=== PATIENT | male | born 1955 | race Caucasian/White ===

== ENCOUNTER 2019-03-28 19:42 | Inpatient (IN) | payer BC, OTHER ==
[~2019-03-28] VITALS: Ht 182.9 cm; Wt 95.1 kg
--- NOTE | 2019-03-28 19:43 | NUR ---
BIB EMS from [facility] for acute CHF, hypertensive crisis, NSTEMI, and acute hypoxemic respiratory failure. Pt intubated prior to arrival. Pt on propofol drip upon arrival at 40mcg/kg/min, per Dr. Liv virgen to continue sedation.
--- NOTE | 2019-03-28 19:45 | NUR ---
FAMILY NEHA CALVILLO [phone]. SHE IS ON HER WAY HERE, SHE REQUESTS A DIRECTOR OF PROMOTIONS FOR THE PATIENT
--- NOTE | 2019-03-28 19:56 | NUR ---
Propofol paused for neuro exam.
--- NOTE | 2019-03-28 19:58 | NUR ---
Propofol restarted for XR, lab draw, and RT.
[2019-03-28] MEDS ORDERED: SODIUM CHLORIDE FLUSH 10ML SYR IVF ONE (20:00)
[2019-03-28 20:52] LABS: INTERNATIONAL NORMALIZED RATIO 11.7 (0.93-1.1); PROTHROMBIN TIME 111.8 Seconds (9.6-11.5)
[2019-03-28 20:55] LABS: BASOPHILS # (AUTO) 0.01 x10^3/uL (0-0.1); BASOPHILS % (AUTO) 0 % (0-1); EOSINOPHILS % (AUTO) 0 % (1-7); LYMPHOCYTES # (AUTO) 1.01 x10^3/uL (1-3.4); LYMPHOCYTES % (AUTO) 11 % (22-44); MD NO; MEAN CORPUSCULAR HEMOGLOBIN 24.1 pg (27.5-34.5); MEAN CORPUSCULAR HGB CONC 31.6 g/dL (33.2-36.2); MEAN CORPUSCULAR VOLUME 76.2 fL (81-97); MEAN PLATELET VOLUME 6.7 fL (7.4-10.4); MONOCYTES # (AUTO) 0.59 x10^3/uL (0.2-0.8); MONOCYTES % (AUTO) 6 % (2-9); NEUTROPHILS # (AUTO) 8.05 x10^3/uL (1.8-6.8); NEUTROPHILS % (AUTO) 83 % (42-75); PLATELET COUNT 464 x10^3/uL (130-400); RED BLOOD COUNT 4.32 x10^6/uL (4.38-5.82); RED CELL DISTRIBUTION WIDTH 18.5 % (9.4-14.8)
[2019-03-28 20:59] LABS: ALANINE AMINOTRANSFERASE 327 U/L (12-78); ALBUMIN 2.7 g/dL (3.4-5.0); ANION GAP 10 mmol/L (5-15); CHLORIDE 104 mmol/L (98-107); CREATININE 1.13 mg/dL (0.7-1.3)
[2019-03-28 21:04] LABS: ALKALINE PHOSPHATASE 53 U/L (45-117); BILIRUBIN,TOTAL 0.7 mg/dL (0.2-1.0); CREATINE KINASE, TOTAL 499 U/L (39-308); TOTAL PROTEIN 6.9 g/dL (6.4-8.2)
[2019-03-28 21:06] LABS: TROPONIN I 0.125 ng/mL (0.000-0.045)
[2019-03-28] MEDS: PROPOFOL 100 ML IV SCH (21:12)
[2019-03-28] MEDS ORDERED: NOREPINEPHRINE 4 MG in SODIUM CHLORIDE 0.9% 246 ML IV PRN (21:26)
[2019-03-28] MEDS ORDERED: LACTULOSE 20 GM/30 ML UDC NG PRN (21:30)
[2019-03-28] MEDS ORDERED: BISACODYL 10 MG SUPP PR PRN (21:30)
[2019-03-28] MEDS ORDERED: DEXTROSE 50%, 50ML SYRINGE IVPush PRN (21:30)
[2019-03-28] MEDS ORDERED: ALBUTEROL/IPRATROPIUM 2.5MG/0.5MG, 3 ML INLINE SCH (21:30)
[2019-03-28] MEDS ORDERED: GLUCAGON 1 MG IM PRN (21:30)
[2019-03-28] MEDS ORDERED: PHARMACY MAY ADJ FOR RENAL FX MC SCH (21:30)
[2019-03-28] MEDS ORDERED: SENNA 176 MG/5 ML ORAL SOL NG PRN (21:30)
[2019-03-28] MEDS ORDERED: DEXTROSE 4 GM TAB.CHEW PO PRN (21:30)
[2019-03-28] MEDS ORDERED: FENTANYL PF 100 MCG/2ML IVPush PRN (21:30)
[2019-03-28] MEDS ORDERED: SENNA/DOCUSATE TABLET NG PRN (21:30)
--- NOTE | 2019-03-28 21:37 | NUR ---
BROTHER MASSIEL AGRAWAL [phone]
--- NOTE | 2019-03-28 21:39 | NUR ---
Dr. Hernandez at bedside to evaluate pt for admission.
--- NOTE | 2019-03-28 21:56 | NUR ---
Telephone SBAR report given to Melvin SHELBY. Pt readied for transport.
[2019-03-28] MEDS ORDERED: ENALAPRILAT 1.25 MG/ML, 2ML IVPush PRN (22:00)
[2019-03-28] MEDS ORDERED: LACTATED RINGERS 1,000 ML IV SCH (22:00)
[2019-03-28] MEDS ORDERED: PHARMACY MAY ADJ FOR RENAL FX MC PRN (22:00)
[2019-03-28] MEDS ORDERED: PHYTONADIONE 10 MG in SODIUM CHLORIDE 0.9% 50 ML IV ONE (22:00)
[2019-03-28] MEDS: SODIUM CHLORIDE 0.9% 1,000 ML IV SCH (22:59)
[2019-03-28] MEDS: FAMOTIDINE 20 MG/2 ML IV SCH (23:00)
[2019-03-28] MEDS: CEFTRIAXONE PMX 1GM/50ML 50 ML IV SCH (23:25)
[2019-03-28 23:39] LABS: TROPONIN I 0.123 ng/mL (0.000-0.045)
[2019-03-28 23:53] LABS: BILIRUBIN, DIRECT 0.4 mg/dL (0.1-0.2)
[2019-03-28 23:54] LABS: BILIRUBIN,INDIRECT 0.3 mg/dL (0.0-2.0); BILIRUBIN,TOTAL 0.7 mg/dL (0.2-1.0)
[2019-03-29] MEDS ORDERED: GEMF600T8 PO (00:14)
[2019-03-29] MEDS ORDERED: MELO15TA24 PO (00:14)
[2019-03-29] MEDS ORDERED: HYDR-3245 PO (00:14)
[2019-03-29] MEDS ORDERED: CITA40TA5 PO (00:14)
[2019-03-29] MEDS ORDERED: ALBU18HF INH (00:14)
[2019-03-29] MEDS ORDERED: MODAFINIL PO (00:14)
[2019-03-29] MEDS ORDERED: AMLO1CAP12 PO (00:14)
[2019-03-29] MEDS ORDERED: OMEP-110 PO (00:14)
[2019-03-29] MEDS ORDERED: LOVA40TA2 PO (00:14)
[2019-03-29] MEDS ORDERED: epi-pen IM (00:14)
[2019-03-29] MEDS ORDERED: TRAM200T17 PO (00:14)
[2019-03-29] MEDS: DOXYCYCLINE 100 MG in DEXTROSE 5% 250 ML IV SCH ×2 (00:22→12:04)
[2019-03-29] MEDS: methylPREDNISolone SOD SUCC 40 MG/ML IV SCH ×4 (00:22→18:33)
[2019-03-29 01:02] LABS: CULTURE INDICATED? YES; MICROSCOPIC INDICATED
[2019-03-29] MEDS: PROPOFOL 100 ML IV SCH (01:30)
[2019-03-29] MEDS: ALBUTEROL/IPRATROPIUM 2.5MG/0.5MG, 3 ML INLINE SCH ×7 (02:58→22:18)
[2019-03-29 03:36] LABS: BASOPHILS # (AUTO) 0.01 x10^3/uL (0-0.1); BASOPHILS % (AUTO) 0 % (0-1); EOSINOPHILS # (AUTO) 0.01 x10^3/uL (0-0.4); EOSINOPHILS % (AUTO) 0 % (1-7); LYMPHOCYTES # (AUTO) 0.33 x10^3/uL (1-3.4); LYMPHOCYTES % (AUTO) 4 % (22-44); MD NO; MEAN CORPUSCULAR HEMOGLOBIN 24.2 pg (27.5-34.5); MEAN CORPUSCULAR VOLUME 75.7 fL (81-97); MEAN PLATELET VOLUME 6.9 fL (7.4-10.4); MONOCYTES # (AUTO) 0.29 x10^3/uL (0.2-0.8); MONOCYTES % (AUTO) 3 % (2-9); NEUTROPHILS # (AUTO) 8.28 x10^3/uL (1.8-6.8); NEUTROPHILS % (AUTO) 93 % (42-75); PLATELET COUNT 406 x10^3/uL (130-400); RED BLOOD COUNT 4.15 x10^6/uL (4.38-5.82); RED CELL DISTRIBUTION WIDTH 18.5 % (9.4-14.8)
[2019-03-29 03:46] LABS: INTERNATIONAL NORMALIZED RATIO 3.55 (0.93-1.1)
[2019-03-29 03:49] LABS: ALANINE AMINOTRANSFERASE 372 U/L (12-78); ALBUMIN 2.6 g/dL (3.4-5.0); ANION GAP 9 mmol/L (5-15); CALCIUM 8.1 mg/dL (8.5-10.1); CHLORIDE 105 mmol/L (98-107)
[2019-03-29 03:51] LABS: AMPHETAMINE SCREEN, URINE Negative (Negative); BARBITURATE SCREEN, URINE Negative (Negative); BENZODIAZEPINE SCREEN, URINE Negative (Negative); CANNABINOID SCREEN, URINE Negative (Negative); COCAINE SCREEN, URINE Negative (Negative); METHADONE SCREEN, URINE Negative (Negative); OPIATE SCREEN, URINE Positive (Negative)
[2019-03-29 03:52] LABS: ALKALINE PHOSPHATASE 51 U/L (45-117); BILIRUBIN,TOTAL 0.5 mg/dL (0.2-1.0); CHOL/HDL RATIO 3.6; CHOLESTEROL, TOTAL 102 mg/dL (140-239); CREATININE 0.98 mg/dL (0.7-1.3); HDL CHOL % 27 % (26-37); HDL CHOLESTEROL (DIRECT) 28 mg/dL (40-60); LDL CHOLESTEROL,CALCULATED 62 mg/dL (54-169); LDL/HDL RATIO 2.2 (0.5-3.0); TOTAL PROTEIN 6.6 g/dL (6.4-8.2); TRIGLYCERIDES 62 mg/dL (50-200); TROPONIN I 0.131 ng/mL (0.000-0.045); VLDL CHOLESTEROL 12 mg/dL (0-25)
[2019-03-29 04:00] VITALS: BP 106/78
[2019-03-29 04:02] LABS: PROTHROMBIN TIME 35.5 Seconds (9.6-11.5)
[2019-03-29] MEDS ORDERED: INSULIN LISPRO 100 UNITS/ML, PEN SQ-INSULIN SCH (07:00)
[2019-03-29] MEDS ORDERED: ASPIRIN 300 MG SUPP PR SCH (09:00)
[2019-03-29] MEDS ORDERED: BUDESONIDE 0.5 MG/2 ML INHA INH SCH (09:00)
[2019-03-29] MEDS: FAMOTIDINE 20 MG/2 ML IV SCH ×2 (09:06→21:00)
[2019-03-29] MEDS: SODIUM CHLORIDE FLUSH 10ML SYR IVF SCH ×2 (09:06→21:00)
[2019-03-29] MEDS: INSULIN LISPRO 100 UNITS/ML, PEN SQ-INSULIN SCH ×2 (14:14→21:01)
[2019-03-29] MEDS: PROPOFOL 100 ML IV PRN ×2 (15:06→22:25)
[2019-03-29] MEDS: SODIUM CHLORIDE 0.9% 1,000 ML IV SCH (18:33)
[2019-03-29] MEDS: LIDOCAINE-MPF 1%, 2ML ENDO PRN (20:35)
[2019-03-29] MEDS: CEFTRIAXONE PMX 1GM/50ML 50 ML IV SCH (23:13)
[2019-03-30] MEDS: DOXYCYCLINE 100 MG in DEXTROSE 5% 250 ML IV SCH ×3 (00:26→23:49)
[2019-03-30] MEDS: methylPREDNISolone SOD SUCC 40 MG/ML IV SCH ×3 (00:26→10:59)
[2019-03-30] MEDS: PROPOFOL 100 ML IV PRN ×6 (00:57→23:54)
[2019-03-30] MEDS: INSULIN LISPRO 100 UNITS/ML, PEN SQ-INSULIN SCH ×4 (02:22→20:00)
[2019-03-30] MEDS: ALBUTEROL/IPRATROPIUM 2.5MG/0.5MG, 3 ML INLINE SCH ×6 (02:35→22:13)
[2019-03-30 04:05] VITALS: BP 108/74
[2019-03-30 04:57] LABS: MEAN CORPUSCULAR HEMOGLOBIN 24.2 pg (27.5-34.5); MEAN CORPUSCULAR HGB CONC 31.7 g/dL (33.2-36.2); MEAN CORPUSCULAR VOLUME 76.2 fL (81-97); MEAN PLATELET VOLUME 7.2 fL (7.4-10.4); PLATELET COUNT 440 x10^3/uL (130-400); RED CELL DISTRIBUTION WIDTH 18.7 % (9.4-14.8)
[2019-03-30 05:00] LABS: INTERNATIONAL NORMALIZED RATIO 1.39 (0.93-1.1); PROTHROMBIN TIME 14.4 Seconds (9.6-11.5)
[2019-03-30 05:03] LABS: ALBUMIN 2.3 g/dL (3.4-5.0); ANION GAP 8 mmol/L (5-15); CHLORIDE 109 mmol/L (98-107)
[2019-03-30 05:07] LABS: ALANINE AMINOTRANSFERASE 300 U/L (12-78); ALKALINE PHOSPHATASE 47 U/L (45-117); BILIRUBIN,TOTAL 0.4 mg/dL (0.2-1.0); CREATININE 0.81 mg/dL (0.7-1.3); TOTAL PROTEIN 6.3 g/dL (6.4-8.2)
[2019-03-30 05:49] LABS: ANISOCYTOSIS 1+; BASOPHILS % (AUTO) 0 % (0-1); EOSINOPHILS % (AUTO) 0 % (1-7); HYPOCHROMIA 1+; LYMPHOCYTES # (AUTO) 0.31 x10^3/uL (1-3.4); LYMPHOCYTES % (AUTO) 3 % (22-44); MD MORPH REVIEW ONLY; MICROCYTOSIS 1+; MONOCYTES # (AUTO) 0.18 x10^3/uL (0.2-0.8); MONOCYTES % (AUTO) 2 % (2-9); NEUTROPHILS # (AUTO) 11.15 x10^3/uL (1.8-6.8); NEUTROPHILS % (AUTO) 96 % (42-75)
[2019-03-30 05:50] LABS: OVALOCYTES 1+; POLYCHROMASIA 1+
[2019-03-30 05:51] LABS: <PLATELET ESTIMATE> INCREASED; <PLT MORPHOLOGY> NORMAL PLT MORPH
[2019-03-30] MEDS: SODIUM CHLORIDE FLUSH 10ML SYR IVF SCH ×2 (08:50→20:37)
[2019-03-30] MEDS: FAMOTIDINE 20 MG/2 ML IV SCH ×2 (08:55→20:37)
--- NOTE | 2019-03-30 09:59 | NUR ---
TF GOAL: w/ propofol: PROMOTE @ 75ML/HR off propofol: PROMOTE @ 85ML/HR
[2019-03-30] MEDS ORDERED: FUROSEMIDE 40 MG/4 ML IV ONE (12:00)
[2019-03-30] MEDS: SODIUM CHLORIDE 0.9% 1,000 ML IV SCH (12:17)
[2019-03-30] MEDS: LIDOCAINE-MPF 1%, 2ML ENDO PRN (19:40)
[2019-03-30] MEDS ORDERED: methylPREDNISolone SOD SUCC 40 MG/ML ONE (19:59)
[2019-03-30] MEDS: CEFTRIAXONE PMX 1GM/50ML 50 ML IV SCH (22:44)
[2019-03-30] MEDS ORDERED: methylPREDNISolone SOD SUCC 40 MG/ML IV SCH (23:30)
[2019-03-31] MEDS: INSULIN LISPRO 100 UNITS/ML, PEN SQ-INSULIN SCH ×4 (01:22→20:59)
[2019-03-31] MEDS: ALBUTEROL/IPRATROPIUM 2.5MG/0.5MG, 3 ML INLINE SCH ×2 (02:14→07:00)
[2019-03-31] MEDS: PROPOFOL 100 ML IV PRN (02:50)
[2019-03-31 04:40] VITALS: BP 115/72
[2019-03-31 04:59] LABS: ANION GAP 6 mmol/L (5-15); CALCIUM 8.2 mg/dL (8.5-10.1); CHLORIDE 110 mmol/L (98-107)
[2019-03-31 05:00] LABS: TRIGLYCERIDES 108 mg/dL (50-200)
[2019-03-31 05:05] LABS: MEAN CORPUSCULAR HEMOGLOBIN 24.2 pg (27.5-34.5); MEAN CORPUSCULAR HGB CONC 31.9 g/dL (33.2-36.2); MEAN CORPUSCULAR VOLUME 75.7 fL (81-97); MEAN PLATELET VOLUME 7.2 fL (7.4-10.4); PLATELET COUNT 452 x10^3/uL (130-400); RED BLOOD COUNT 4.38 x10^6/uL (4.38-5.82); RED CELL DISTRIBUTION WIDTH 18.6 % (9.4-14.8)
[2019-03-31 05:49] LABS: BASOPHILS % (AUTO) 0 % (0-1); EOSINOPHILS % (AUTO) 0 % (1-7); LYMPHOCYTES # (AUTO) 0.19 x10^3/uL (1-3.4); LYMPHOCYTES % (AUTO) 2 % (22-44); MD MORPH REVIEW ONLY; MONOCYTES # (AUTO) 0.46 x10^3/uL (0.2-0.8); MONOCYTES % (AUTO) 4 % (2-9); NEUTROPHILS % (AUTO) 95 % (42-75)
[2019-03-31 05:51] LABS: ANISOCYTOSIS 1+; MICROCYTOSIS 1+; OVALOCYTES 1+
[2019-03-31 05:52] LABS: <PLATELET ESTIMATE> INCREASED; <PLT MORPHOLOGY> NORMAL PLT MORPH; POLYCHROMASIA 1+; TARGET CELLS 1+
[2019-03-31] MEDS: FAMOTIDINE 20 MG/2 ML IV SCH ×2 (08:53→20:59)
[2019-03-31] MEDS: ENOXAPARIN 100 MG/ML SQ SCH ×2 (08:53→20:59)
[2019-03-31] MEDS: SODIUM CHLORIDE FLUSH 10ML SYR IVF SCH ×2 (08:54→20:59)
[2019-03-31] MEDS: SODIUM CHLORIDE 0.9% 1,000 ML IV SCH (08:56)
[2019-03-31] MEDS: DOXYCYCLINE 100 MG in DEXTROSE 5% 250 ML IV SCH ×2 (12:02→23:41)
[2019-03-31] MEDS ORDERED: MELATONIN 3 MG TABLET PO PRN (14:30)
--- NOTE | 2019-03-31 14:47 | NUR ---
EXTERNAL RELATIONS DIRECTOR RECOMMEND: PUREE/ THINS -No straws -UP at 90 degrees -Small bites/ sip -Meds floated Addendum: 03/31/19 at [address] Amended: Links added.
[2019-03-31] MEDS: CEFTRIAXONE PMX 1GM/50ML 50 ML IV SCH (23:13)
[2019-04-01] MEDS: INSULIN LISPRO 100 UNITS/ML, PEN SQ-INSULIN SCH ×4 (02:00→20:00)
[2019-04-01 04:42] LABS: BASOPHILS # (AUTO) 0.01 x10^3/uL (0-0.1); BASOPHILS % (AUTO) 0 % (0-1); EOSINOPHILS # (AUTO) 0.01 x10^3/uL (0-0.4); EOSINOPHILS % (AUTO) 0 % (1-7); LYMPHOCYTES # (AUTO) 1.46 x10^3/uL (1-3.4); LYMPHOCYTES % (AUTO) 17 % (22-44); MD NO; MEAN CORPUSCULAR HEMOGLOBIN 24.2 pg (27.5-34.5); MEAN CORPUSCULAR HGB CONC 31.7 g/dL (33.2-36.2); MEAN CORPUSCULAR VOLUME 76.3 fL (81-97); MONOCYTES # (AUTO) 0.55 x10^3/uL (0.2-0.8); MONOCYTES % (AUTO) 6 % (2-9); NEUTROPHILS # (AUTO) 6.56 x10^3/uL (1.8-6.8); NEUTROPHILS % (AUTO) 76 % (42-75); PLATELET COUNT 391 x10^3/uL (130-400); RED BLOOD COUNT 4.36 x10^6/uL (4.38-5.82); RED CELL DISTRIBUTION WIDTH 19.1 % (9.4-14.8)
[2019-04-01 04:57] LABS: ANION GAP 4 mmol/L (5-15); CALCIUM 8.1 mg/dL (8.5-10.1); CHLORIDE 112 mmol/L (98-107)
[2019-04-01 04:58] LABS: CREATININE 0.72 mg/dL (0.7-1.3)
[2019-04-01 07:44] VITALS: BP 121/88
[2019-04-01 10:19] LABS: ALBUMIN 2.4 g/dL (3.4-5.0); BILIRUBIN, DIRECT 0.2 mg/dL (0.1-0.2)
[2019-04-01 10:21] LABS: BILIRUBIN,INDIRECT 0.2 mg/dL (0.0-2.0); BILIRUBIN,TOTAL 0.4 mg/dL (0.2-1.0)
[2019-04-01] MEDS: SODIUM CHLORIDE FLUSH 10ML SYR IVF SCH ×2 (10:26→21:10)
[2019-04-01] MEDS: ENOXAPARIN 100 MG/ML SQ SCH ×2 (10:26→21:10)
[2019-04-01] MEDS: ASPIRIN 325 MG TABLET EC PO SCH (10:27)
[2019-04-01 10:53] LABS: INTERNATIONAL NORMALIZED RATIO 1.32 (0.93-1.1); PROTHROMBIN TIME 13.7 Seconds (9.6-11.5)
[2019-04-01] MEDS ORDERED: WARFARIN MODERAT DOSE PROTOCOL XX SCH (12:00)
[2019-04-01] MEDS: DOXYCYCLINE 100 MG in DEXTROSE 5% 250 ML IV SCH (14:07)
[2019-04-01 16:08] VITALS: BP 133/81
[2019-04-01] MEDS: WARFARIN 5 MG TABLET PO-COUM SCH (17:19)
[2019-04-01] MEDS ORDERED: WARFARIN 7.5 MG TABLET PO-COUM ONE (18:00)
[2019-04-01 19:19] VITALS: BP 105/75
[2019-04-01] MEDS: ATORVASTATIN 40 MG TABLET PO SCH (21:10)
[2019-04-01] MEDS: CEFTRIAXONE PMX 1GM/50ML 50 ML IV SCH (23:27)
[2019-04-02] MEDS: TEMAZEPAM 15 MG CAPSULE PO PRN ×2 (00:05→21:31)
[2019-04-02] MEDS: INSULIN LISPRO 100 UNITS/ML, PEN SQ-INSULIN SCH ×4 (02:00→22:07)
[2019-04-02 02:15] VITALS: BP 106/64
[2019-04-02] MEDS: DOXYCYCLINE 100 MG in DEXTROSE 5% 250 ML IV SCH ×2 (02:30→17:39)
[2019-04-02 05:40] LABS: BASOPHILS % (AUTO) 0 % (0-1); EOSINOPHILS # (AUTO) 0.09 x10^3/uL (0-0.4); EOSINOPHILS % (AUTO) 1 % (1-7); LYMPHOCYTES # (AUTO) 1.68 x10^3/uL (1-3.4); LYMPHOCYTES % (AUTO) 26 % (22-44); MD NO; MEAN CORPUSCULAR HGB CONC 31.3 g/dL (33.2-36.2); MEAN CORPUSCULAR VOLUME 76.8 fL (81-97); MEAN PLATELET VOLUME 7.3 fL (7.4-10.4); MONOCYTES # (AUTO) 0.57 x10^3/uL (0.2-0.8); MONOCYTES % (AUTO) 9 % (2-9); NEUTROPHILS % (AUTO) 64 % (42-75); PLATELET COUNT 374 x10^3/uL (130-400); RED BLOOD COUNT 4.91 x10^6/uL (4.38-5.82); RED CELL DISTRIBUTION WIDTH 18.7 % (9.4-14.8)
[2019-04-02 05:45] LABS: INTERNATIONAL NORMALIZED RATIO 1.25 (0.93-1.1)
[2019-04-02 05:49] LABS: CHLORIDE 107 mmol/L (98-107)
[2019-04-02 05:55] LABS: ANION GAP 6 mmol/L (5-15); CALCIUM 8.5 mg/dL (8.5-10.1); CREATININE 0.69 mg/dL (0.7-1.3)
[2019-04-02] MEDS: ASPIRIN 325 MG TABLET EC PO SCH (08:21)
[2019-04-02] MEDS: FERROUS SULFATE 325 MG TABLET PO SCH (08:21)
[2019-04-02] MEDS: ENOXAPARIN 100 MG/ML SQ SCH ×2 (08:22→21:31)
[2019-04-02] MEDS: SODIUM CHLORIDE FLUSH 10ML SYR IVF SCH ×2 (09:00→21:00)
[2019-04-02] MEDS ORDERED: LORazepam 2 MG/ML, 1ML IVPush PRN (14:30)
[2019-04-02] MEDS: WARFARIN 5 MG TABLET PO-COUM SCH (17:40)
[2019-04-02 18:53] VITALS: BP 112/57
[2019-04-02] MEDS: ATORVASTATIN 40 MG TABLET PO SCH (21:31)
[2019-04-03] MEDS: CEFTRIAXONE PMX 1GM/50ML 50 ML IV SCH (00:23)
[2019-04-03 00:52] VITALS: BP 119/79
[2019-04-03] MEDS: DOXYCYCLINE 100 MG in DEXTROSE 5% 250 ML IV SCH (05:39)
[2019-04-03] MEDS: ASPIRIN 325 MG TABLET EC PO SCH (06:00)
[2019-04-03 06:03] LABS: BASOPHILS # (AUTO) 0.01 x10^3/uL (0-0.1); BASOPHILS % (AUTO) 0 % (0-1); EOSINOPHILS # (AUTO) 0.22 x10^3/uL (0-0.4); EOSINOPHILS % (AUTO) 4 % (1-7); LYMPHOCYTES # (AUTO) 1.79 x10^3/uL (1-3.4); LYMPHOCYTES % (AUTO) 30 % (22-44); MD NO; MEAN CORPUSCULAR HGB CONC 31.2 g/dL (33.2-36.2); MEAN CORPUSCULAR VOLUME 76.7 fL (81-97); MEAN PLATELET VOLUME 7.3 fL (7.4-10.4); MONOCYTES # (AUTO) 0.48 x10^3/uL (0.2-0.8); MONOCYTES % (AUTO) 8 % (2-9); NEUTROPHILS # (AUTO) 3.56 x10^3/uL (1.8-6.8); NEUTROPHILS % (AUTO) 59 % (42-75); PLATELET COUNT 401 x10^3/uL (130-400); RED BLOOD COUNT 5.34 x10^6/uL (4.38-5.82); RED CELL DISTRIBUTION WIDTH 19.3 % (9.4-14.8)
[2019-04-03 06:04] LABS: INTERNATIONAL NORMALIZED RATIO 1.26 (0.93-1.1); PROTHROMBIN TIME 13.1 Seconds (9.6-11.5)
[2019-04-03 06:11] LABS: ANION GAP 7 mmol/L (5-15); CALCIUM 8.3 mg/dL (8.5-10.1); CHLORIDE 108 mmol/L (98-107)
[2019-04-03 06:13] LABS: CREATININE 0.61 mg/dL (0.7-1.3)
[2019-04-03] MEDS: INSULIN LISPRO 100 UNITS/ML, PEN SQ-INSULIN SCH ×4 (07:00→21:19)
[2019-04-03 08:45] VITALS: BP 114/85
[2019-04-03] MEDS: SODIUM CHLORIDE FLUSH 10ML SYR IVF SCH ×2 (09:00→21:18)
[2019-04-03] MEDS: ENOXAPARIN 100 MG/ML SQ SCH ×2 (09:00→21:18)
[2019-04-03] MEDS: FERROUS SULFATE 325 MG TABLET PO SCH (09:00)
[2019-04-03 15:17] VITALS: BP 128/87
[2019-04-03] MEDS: CARVEDILOL 3.125 MG TABLET PO SCH (18:07)
[2019-04-03] MEDS: WARFARIN 5 MG TABLET PO-COUM SCH (18:07)
[2019-04-03 18:48] VITALS: BP 125/75
[2019-04-03] MEDS: ATORVASTATIN 40 MG TABLET PO SCH (21:19)
[2019-04-04 00:56] VITALS: BP 126/79
[2019-04-04] MEDS: CARVEDILOL 3.125 MG TABLET PO SCH ×2 (05:05→17:57)
[2019-04-04] MEDS: ASPIRIN 325 MG TABLET EC PO SCH (05:05)
[2019-04-04 05:44] LABS: BASOPHILS # (AUTO) 0.01 x10^3/uL (0-0.1); BASOPHILS % (AUTO) 0 % (0-1); EOSINOPHILS % (AUTO) 2 % (1-7); LYMPHOCYTES # (AUTO) 1.79 x10^3/uL (1-3.4); LYMPHOCYTES % (AUTO) 19 % (22-44); MD NO; MEAN CORPUSCULAR HEMOGLOBIN 24.2 pg (27.5-34.5); MEAN CORPUSCULAR VOLUME 77.9 fL (81-97); MEAN PLATELET VOLUME 7.7 fL (7.4-10.4); MONOCYTES # (AUTO) 0.65 x10^3/uL (0.2-0.8); MONOCYTES % (AUTO) 7 % (2-9); NEUTROPHILS # (AUTO) 6.62 x10^3/uL (1.8-6.8); NEUTROPHILS % (AUTO) 71 % (42-75); PLATELET COUNT 386 x10^3/uL (130-400); RED BLOOD COUNT 4.71 x10^6/uL (4.38-5.82); RED CELL DISTRIBUTION WIDTH 18.6 % (9.4-14.8)
[2019-04-04 05:48] LABS: INTERNATIONAL NORMALIZED RATIO 1.4 (0.93-1.1); PROTHROMBIN TIME 14.5 Seconds (9.6-11.5)
[2019-04-04 05:54] LABS: ANION GAP 7 mmol/L (5-15); CALCIUM 7.9 mg/dL (8.5-10.1); CHLORIDE 109 mmol/L (98-107)
[2019-04-04 05:56] LABS: CREATININE 0.67 mg/dL (0.7-1.3)
[2019-04-04 06:54] VITALS: BP 115/79
[2019-04-04] MEDS: INSULIN LISPRO 100 UNITS/ML, PEN SQ-INSULIN SCH ×4 (07:00→21:11)
[2019-04-04] MEDS: SODIUM CHLORIDE FLUSH 10ML SYR IVF SCH ×2 (09:00→21:11)
[2019-04-04] MEDS: FERROUS SULFATE 325 MG TABLET PO SCH (10:21)
[2019-04-04] MEDS: SPIRONOLACTONE 25 MG TABLET PO SCH (10:21)
[2019-04-04] MEDS: LISINOPRIL 5 MG TABLET PO SCH (10:22)
[2019-04-04] MEDS: ENOXAPARIN 100 MG/ML SQ SCH ×2 (10:22→21:11)
[2019-04-04] MEDS: FUROSEMIDE 40 MG TABLET PO SCH (10:22)
[2019-04-04 13:51] VITALS: BP 111/73
[2019-04-04] MEDS: WARFARIN 5 MG TABLET PO-COUM SCH (17:57)
[2019-04-04 18:37] VITALS: BP 120/82
[2019-04-04] MEDS: ATORVASTATIN 40 MG TABLET PO SCH (21:11)
[2019-04-05 01:00] VITALS: BP 113/84
[2019-04-05 02:50] VITALS: BP 118/77
[2019-04-05] MEDS: ASPIRIN 325 MG TABLET EC PO SCH (05:22)
[2019-04-05] MEDS: CARVEDILOL 3.125 MG TABLET PO SCH ×2 (05:22→17:22)
[2019-04-05 05:59] LABS: BASOPHILS % (AUTO) 0 % (0-1); EOSINOPHILS # (AUTO) 0.12 x10^3/uL (0-0.4); EOSINOPHILS % (AUTO) 2 % (1-7); LYMPHOCYTES # (AUTO) 1.63 x10^3/uL (1-3.4); LYMPHOCYTES % (AUTO) 22 % (22-44); MD NO; MEAN CORPUSCULAR HEMOGLOBIN 24.2 pg (27.5-34.5); MEAN CORPUSCULAR HGB CONC 31.3 g/dL (33.2-36.2); MEAN CORPUSCULAR VOLUME 77.4 fL (81-97); MEAN PLATELET VOLUME 7.4 fL (7.4-10.4); MONOCYTES # (AUTO) 0.77 x10^3/uL (0.2-0.8); MONOCYTES % (AUTO) 10 % (2-9); NEUTROPHILS % (AUTO) 67 % (42-75); PLATELET COUNT 358 x10^3/uL (130-400); RED BLOOD COUNT 5.02 x10^6/uL (4.38-5.82)
[2019-04-05 06:09] LABS: INTERNATIONAL NORMALIZED RATIO 1.42 (0.93-1.1); PROTHROMBIN TIME 14.7 Seconds (9.6-11.5)
[2019-04-05 06:13] LABS: ALBUMIN 2.8 g/dL (3.4-5.0); ANION GAP 8 mmol/L (5-15); CALCIUM 8.3 mg/dL (8.5-10.1); CHLORIDE 112 mmol/L (98-107)
[2019-04-05 06:16] LABS: ALANINE AMINOTRANSFERASE 67 U/L (12-78); ALKALINE PHOSPHATASE 51 U/L (45-117); BILIRUBIN,TOTAL 0.6 mg/dL (0.2-1.0); CREATININE 0.73 mg/dL (0.7-1.3)
[2019-04-05] MEDS: INSULIN LISPRO 100 UNITS/ML, PEN SQ-INSULIN SCH (07:00)
[2019-04-05] MEDS: ENOXAPARIN 100 MG/ML SQ SCH ×2 (08:19→21:40)
[2019-04-05] MEDS: SPIRONOLACTONE 25 MG TABLET PO SCH (08:19)
[2019-04-05] MEDS: FERROUS SULFATE 325 MG TABLET PO SCH (08:19)
[2019-04-05] MEDS: LISINOPRIL 5 MG TABLET PO SCH (08:19)
[2019-04-05] MEDS: FUROSEMIDE 40 MG TABLET PO SCH (08:20)
[2019-04-05] MEDS: SODIUM CHLORIDE FLUSH 10ML SYR IVF SCH ×2 (08:20→21:40)
[2019-04-05 13:25] VITALS: BP 106/71
[2019-04-05] MEDS: WARFARIN 5 MG TABLET PO-COUM SCH (17:20)
[2019-04-05 17:23] VITALS: BP 121/78
[2019-04-05 19:10] VITALS: BP 114/76
[2019-04-05] MEDS: ATORVASTATIN 40 MG TABLET PO SCH (21:40)
[2019-04-06] VITALS (7 sets, daily range): BP systolic 96–124; BP diastolic 65–85
[2019-04-06 05:48] LABS: INTERNATIONAL NORMALIZED RATIO 1.6 (0.93-1.1); PROTHROMBIN TIME 16.5 Seconds (9.6-11.5)
[2019-04-06] MEDS: ASPIRIN 325 MG TABLET EC PO SCH (05:58)
[2019-04-06] MEDS: CARVEDILOL 3.125 MG TABLET PO SCH ×2 (05:58→18:17)
[2019-04-06 08:16] LABS: ANION GAP 7 mmol/L (5-15); CALCIUM 8.1 mg/dL (8.5-10.1); CHLORIDE 109 mmol/L (98-107); CREATININE 0.69 mg/dL (0.7-1.3)
[2019-04-06 08:30] LABS: MEAN CORPUSCULAR HEMOGLOBIN 23.4 pg (27.5-34.5); MEAN PLATELET VOLUME 7.8 fL (7.4-10.4); PLATELET COUNT 362 x10^3/uL (130-400); RED BLOOD COUNT 5.12 x10^6/uL (4.38-5.82); RED CELL DISTRIBUTION WIDTH 19.8 % (9.4-14.8)
[2019-04-06] MEDS: SODIUM CHLORIDE FLUSH 10ML SYR IVF SCH ×2 (09:00→20:56)
[2019-04-06 09:28] LABS: BASOPHILS # (AUTO) 0.03 x10^3/uL (0-0.1); BASOPHILS % (AUTO) 0 % (0-1); EOSINOPHILS # (AUTO) 0.12 x10^3/uL (0-0.4); EOSINOPHILS % (AUTO) 2 % (1-7); LYMPHOCYTES # (AUTO) 1.39 x10^3/uL (1-3.4); LYMPHOCYTES % (AUTO) 19 % (22-44); MD SCAN; MONOCYTES # (AUTO) 0.67 x10^3/uL (0.2-0.8); MONOCYTES % (AUTO) 9 % (2-9); NEUTROPHILS # (AUTO) 4.94 x10^3/uL (1.8-6.8); NEUTROPHILS % (AUTO) 69 % (42-75)
[2019-04-06] MEDS: FERROUS SULFATE 325 MG TABLET PO SCH (10:12)
[2019-04-06] MEDS: ENOXAPARIN 80 MG/0.8 ML SQ SCH ×2 (10:12→20:55)
[2019-04-06] MEDS: SPIRONOLACTONE 25 MG TABLET PO SCH (10:12)
[2019-04-06 10:49] LABS: OCCULT BLOOD NEGATIVE (NEGATIVE)
[2019-04-06] MEDS: FUROSEMIDE 40 MG TABLET PO SCH (12:18)
[2019-04-06] MEDS: WARFARIN 5 MG TABLET PO-COUM SCH (18:17)
[2019-04-06] MEDS: ATORVASTATIN 40 MG TABLET PO SCH (20:55)
[2019-04-07 03:55] VITALS: BP 124/75
[2019-04-07] MEDS: CARVEDILOL 3.125 MG TABLET PO SCH ×2 (05:33→18:15)
[2019-04-07] MEDS: ASPIRIN 325 MG TABLET EC PO SCH (05:33)
[2019-04-07 06:16] LABS: BASOPHILS # (AUTO) 0.03 x10^3/uL (0-0.1); BASOPHILS % (AUTO) 0 % (0-1); EOSINOPHILS # (AUTO) 0.15 x10^3/uL (0-0.4); EOSINOPHILS % (AUTO) 3 % (1-7); LYMPHOCYTES # (AUTO) 1.32 x10^3/uL (1-3.4); LYMPHOCYTES % (AUTO) 23 % (22-44); MD NO; MEAN CORPUSCULAR HEMOGLOBIN 24.3 pg (27.5-34.5); MEAN CORPUSCULAR HGB CONC 30.8 g/dL (33.2-36.2); MEAN CORPUSCULAR VOLUME 78.8 fL (81-97); MEAN PLATELET VOLUME 8.1 fL (7.4-10.4); MONOCYTES # (AUTO) 0.63 x10^3/uL (0.2-0.8); MONOCYTES % (AUTO) 11 % (2-9); NEUTROPHILS # (AUTO) 3.75 x10^3/uL (1.8-6.8); NEUTROPHILS % (AUTO) 64 % (42-75); PLATELET COUNT 336 x10^3/uL (130-400); RED CELL DISTRIBUTION WIDTH 19.7 % (9.4-14.8)
[2019-04-07 06:22] LABS: ANION GAP 10 mmol/L (5-15); CHLORIDE 110 mmol/L (98-107); CREATININE 0.75 mg/dL (0.7-1.3); INTERNATIONAL NORMALIZED RATIO 1.69 (0.93-1.1); PROTHROMBIN TIME 17.4 Seconds (9.6-11.5)
[2019-04-07 07:04] VITALS: BP 111/80
[2019-04-07] MEDS: FUROSEMIDE 40 MG TABLET PO SCH (08:15)
[2019-04-07] MEDS: FERROUS SULFATE 325 MG TABLET PO SCH (08:15)
[2019-04-07] MEDS: LISINOPRIL 5 MG TABLET PO SCH (08:15)
[2019-04-07] MEDS: SPIRONOLACTONE 25 MG TABLET PO SCH (08:15)
[2019-04-07] MEDS: ENOXAPARIN 80 MG/0.8 ML SQ SCH ×2 (08:16→20:19)
[2019-04-07] MEDS: SODIUM CHLORIDE FLUSH 10ML SYR IVF SCH ×2 (09:00→20:20)
[2019-04-07 12:56] VITALS: BP 96/70
[2019-04-07 18:00] VITALS: BP 113/77
[2019-04-07] MEDS: WARFARIN 5 MG TABLET PO-COUM SCH (18:14)
[2019-04-07 20:08] VITALS: BP 111/79
[2019-04-07] MEDS: ATORVASTATIN 40 MG TABLET PO SCH (20:19)
[2019-04-07] MEDS: TEMAZEPAM 15 MG CAPSULE PO PRN (22:16)
[2019-04-08 02:15] VITALS: BP 103/51
[2019-04-08 05:30] LABS: BASOPHILS # (AUTO) 0.05 x10^3/uL (0-0.1); BASOPHILS % (AUTO) 1 % (0-1); EOSINOPHILS # (AUTO) 0.13 x10^3/uL (0-0.4); EOSINOPHILS % (AUTO) 2 % (1-7); LYMPHOCYTES # (AUTO) 1.72 x10^3/uL (1-3.4); LYMPHOCYTES % (AUTO) 27 % (22-44); MD NO; MEAN CORPUSCULAR HEMOGLOBIN 24.3 pg (27.5-34.5); MEAN CORPUSCULAR HGB CONC 30.9 g/dL (33.2-36.2); MEAN CORPUSCULAR VOLUME 78.6 fL (81-97); MEAN PLATELET VOLUME 7.8 fL (7.4-10.4); MONOCYTES # (AUTO) 0.74 x10^3/uL (0.2-0.8); MONOCYTES % (AUTO) 12 % (2-9); NEUTROPHILS # (AUTO) 3.67 x10^3/uL (1.8-6.8); NEUTROPHILS % (AUTO) 58 % (42-75); PLATELET COUNT 369 x10^3/uL (130-400); RED CELL DISTRIBUTION WIDTH 19.7 % (9.4-14.8)
[2019-04-08 05:39] LABS: ANION GAP 6 mmol/L (5-15); CALCIUM 8.3 mg/dL (8.5-10.1); CHLORIDE 110 mmol/L (98-107); CREATININE 0.79 mg/dL (0.7-1.3); INTERNATIONAL NORMALIZED RATIO 1.93 (0.93-1.1); PROTHROMBIN TIME 19.8 Seconds (9.6-11.5)
[2019-04-08] MEDS: CARVEDILOL 3.125 MG TABLET PO SCH ×2 (05:53→17:16)
[2019-04-08] MEDS: ASPIRIN 325 MG TABLET EC PO SCH (05:53)
[2019-04-08 07:20] VITALS: BP 112/87
[2019-04-08] MEDS: FERROUS SULFATE 325 MG TABLET PO SCH (09:22)
[2019-04-08] MEDS: SODIUM CHLORIDE FLUSH 10ML SYR IVF SCH ×2 (09:23→20:23)
[2019-04-08] MEDS: LISINOPRIL 5 MG TABLET PO SCH (09:23)
[2019-04-08] MEDS: FUROSEMIDE 40 MG TABLET PO SCH (09:23)
[2019-04-08] MEDS: SPIRONOLACTONE 25 MG TABLET PO SCH (09:23)
[2019-04-08] MEDS: ENOXAPARIN 100 MG/ML SQ SCH ×2 (09:23→20:23)
[2019-04-08 14:42] VITALS: BP 110/62
[2019-04-08] MEDS: WARFARIN 5 MG TABLET PO-COUM SCH (17:15)
[2019-04-08 19:22] VITALS: BP 118/74
[2019-04-08] MEDS: ATORVASTATIN 40 MG TABLET PO SCH (20:23)
[2019-04-08] MEDS: TEMAZEPAM 15 MG CAPSULE PO PRN (22:23)
[2019-04-09 02:53] VITALS: BP 104/72
[2019-04-09] MEDS: ASPIRIN 325 MG TABLET EC PO SCH (05:43)
[2019-04-09] MEDS: CARVEDILOL 3.125 MG TABLET PO SCH ×2 (05:44→17:40)
[2019-04-09 05:57] LABS: BASOPHILS # (AUTO) 0.03 x10^3/uL (0-0.1); BASOPHILS % (AUTO) 1 % (0-1); EOSINOPHILS # (AUTO) 0.11 x10^3/uL (0-0.4); EOSINOPHILS % (AUTO) 2 % (1-7); LYMPHOCYTES % (AUTO) 27 % (22-44); MD NO; MEAN CORPUSCULAR HEMOGLOBIN 24.5 pg (27.5-34.5); MEAN CORPUSCULAR HGB CONC 31.3 g/dL (33.2-36.2); MEAN CORPUSCULAR VOLUME 78.2 fL (81-97); MEAN PLATELET VOLUME 7.8 fL (7.4-10.4); MONOCYTES # (AUTO) 0.58 x10^3/uL (0.2-0.8); MONOCYTES % (AUTO) 10 % (2-9); NEUTROPHILS # (AUTO) 3.63 x10^3/uL (1.8-6.8); NEUTROPHILS % (AUTO) 61 % (42-75); PLATELET COUNT 374 x10^3/uL (130-400); RED BLOOD COUNT 5.01 x10^6/uL (4.38-5.82); RED CELL DISTRIBUTION WIDTH 19.5 % (9.4-14.8)
[2019-04-09 06:16] LABS: ANION GAP 6 mmol/L (5-15); CALCIUM 8.7 mg/dL (8.5-10.1); CHLORIDE 109 mmol/L (98-107); CREATININE 0.84 mg/dL (0.7-1.3)
[2019-04-09 06:38] LABS: INTERNATIONAL NORMALIZED RATIO 1.96 (0.93-1.1); PROTHROMBIN TIME 20.1 Seconds (9.6-11.5)
[2019-04-09 08:40] VITALS: BP 115/81
[2019-04-09] MEDS: LISINOPRIL 5 MG TABLET PO SCH ×2 (08:48→09:12)
[2019-04-09] MEDS: ENOXAPARIN 100 MG/ML SQ SCH (09:02)
[2019-04-09] MEDS: SPIRONOLACTONE 25 MG TABLET PO SCH (09:02)
[2019-04-09] MEDS: FERROUS SULFATE 325 MG TABLET PO SCH (09:02)
[2019-04-09] MEDS: FUROSEMIDE 40 MG TABLET PO SCH (09:02)
[2019-04-09] MEDS: SODIUM CHLORIDE FLUSH 10ML SYR IVF SCH ×2 (09:04→21:02)
[2019-04-09 13:40] VITALS: BP 122/77
[2019-04-09 19:58] VITALS: BP 115/69
[2019-04-09] MEDS: ATORVASTATIN 40 MG TABLET PO SCH (21:01)
[2019-04-09] MEDS: APIXABAN 5 MG TABLET PO SCH (21:04)
[2019-04-09] MEDS: TEMAZEPAM 15 MG CAPSULE PO PRN (22:51)
[2019-04-10 01:19] VITALS: BP 112/75
[2019-04-10] MEDS: ASPIRIN 325 MG TABLET EC PO SCH (05:01)
[2019-04-10] MEDS: CARVEDILOL 3.125 MG TABLET PO SCH (05:01)
[2019-04-10 06:31] LABS: BASOPHILS # (AUTO) 0.02 x10^3/uL (0-0.1); BASOPHILS % (AUTO) 0 % (0-1); EOSINOPHILS # (AUTO) 0.13 x10^3/uL (0-0.4); EOSINOPHILS % (AUTO) 2 % (1-7); LYMPHOCYTES # (AUTO) 1.41 x10^3/uL (1-3.4); LYMPHOCYTES % (AUTO) 24 % (22-44); MD NO; MEAN CORPUSCULAR HEMOGLOBIN 24.1 pg (27.5-34.5); MEAN CORPUSCULAR VOLUME 77.8 fL (81-97); MEAN PLATELET VOLUME 8.1 fL (7.4-10.4); MONOCYTES # (AUTO) 0.57 x10^3/uL (0.2-0.8); MONOCYTES % (AUTO) 10 % (2-9); NEUTROPHILS # (AUTO) 3.78 x10^3/uL (1.8-6.8); NEUTROPHILS % (AUTO) 64 % (42-75); PLATELET COUNT 378 x10^3/uL (130-400); RED BLOOD COUNT 5.11 x10^6/uL (4.38-5.82); RED CELL DISTRIBUTION WIDTH 19.6 % (9.4-14.8)
[2019-04-10 06:38] LABS: INTERNATIONAL NORMALIZED RATIO 1.62 (0.93-1.1); PROTHROMBIN TIME 16.7 Seconds (9.6-11.5)
[2019-04-10 06:56] LABS: ANION GAP 8 mmol/L (5-15); CALCIUM 8.4 mg/dL (8.5-10.1); CHLORIDE 107 mmol/L (98-107); CREATININE 0.79 mg/dL (0.7-1.3)
[2019-04-10 07:58] VITALS: BP 100/60
[2019-04-10] MEDS: SPIRONOLACTONE 25 MG TABLET PO SCH (08:24)
[2019-04-10] MEDS: APIXABAN 5 MG TABLET PO SCH ×2 (08:24→14:04)
[2019-04-10] MEDS: FUROSEMIDE 40 MG TABLET PO SCH (08:25)
[2019-04-10] MEDS: FERROUS SULFATE 325 MG TABLET PO SCH (08:26)
[2019-04-10] MEDS: SODIUM CHLORIDE FLUSH 10ML SYR IVF SCH (08:26)
[2019-04-10] MEDS ORDERED: LISI5TAB7 PO (12:04)
[2019-04-10] MEDS ORDERED: APIX5TAB PO (12:04)
[2019-04-10] MEDS ORDERED: SPIR25TA PO (12:04)
[2019-04-10] MEDS ORDERED: ATOR40TA78 PO (12:04)
[2019-04-10] MEDS ORDERED: ASPI-650 PO (12:04)
[2019-04-10] MEDS ORDERED: FERR-51 PO (12:04)
[2019-04-10] MEDS ORDERED: CARV3.1212 PO (12:04)
[2019-04-10] MEDS ORDERED: FURO40TA6 PO (12:04)
[2019-04-10 12:15] VITALS: BP 118/69
[2019-04-16] MEDS ORDERED: APIXABAN 5 MG TABLET PO SCH (09:00)
== END 2019-04-10 14:30 | disposition home health service (06) | DRG 208 ==
LOC: ED 21:26 → EDIP 21:38 → CCU 22:08 → 4WST 04-01 15:59
PROVIDERS: ADMIT Family Medicine; ATTEND Family Medicine
PROC: 5A1945Z Respiratory Ventilation, 24-96 Consecutive Hours (ICD-10-PCS; principal; 2019-03-28)
PROC: 0BH17EZ Insertion of Endotracheal Airway into Trachea, Via Natural or Artificial Opening (ICD-10-PCS; 2019-03-28)
DX: J96.01 Acute respiratory failure with hypoxia (principal); I63.9 Cerebral infarction, unspecified; G93.41 Metabolic encephalopathy; I50.43 Acute on chronic combined systolic (congestive) and diastolic (congestive) heart failure; I21.A1 Myocardial infarction type 2; B17.9 Acute viral hepatitis, unspecified; D68.69 Other thrombophilia; I82.402 Acute embolism and thrombosis of unspecified deep veins of left lower extremity; I82.431 Acute embolism and thrombosis of right popliteal vein; I82.612 Acute embolism and thrombosis of superficial veins of left upper extremity; Z99.11 Dependence on respirator [ventilator] status; R53.81 Other malaise; B19.20 Unspecified viral hepatitis C without hepatic coma; D50.9 Iron deficiency anemia, unspecified; E78.5 Hyperlipidemia, unspecified; I11.0 Hypertensive heart disease with heart failure; I48.2 Chronic atrial fibrillation; K76.0 Fatty (change of) liver, not elsewhere classified; Z96.652 Presence of left artificial knee joint; R29.6 Repeated falls; Z79.01 Long term (current) use of anticoagulants; Z79.82 Long term (current) use of aspirin; Z79.899 Other long term (current) drug therapy; Z86.711 Personal history of pulmonary embolism; Z98.1 Arthrodesis status
CPT/HCPCS: 36415; 36600; 51702; 84145; 99291; J3490; J7620; J7626; 70551; 71045; 76700; 80048; 80053; 80061; 80074; 80076; 80307; 81001; 82140; 82247; 82248; 82272; 82550; 82728; 82803; 82962; 83540; 83550; 83605; 83690; 83735; 83880; 84100; 84443; 84478; 84484; 85025; 85384; 85610; 85730; 86850; 86900; 87040; 87070; 87081; 87086; 87205; 87521; 93005; 93306; 93970; 94002; 94003; 94150; 94640; G0378; J0696; J1650; J1940; J2704; J3010; J3430; J7060; 92523-GN; J1815; J2060; J2920; J7030; J7120